=== PATIENT | female | born 1975 | race Caucasian/White ===

== ENCOUNTER 2019-05-21 07:02 | Outpatient (CLI) | payer OTHER, SELFPAY ==
[2019-05-21 07:55] LABS: Hemoglobin A1C 5.2 % (4.5-6.2)
[2019-05-21 08:09] LABS: Anion Gap 9.1 mmol/L (3-11); BUN 12 mg/dL (7-18); CO2 25.9 mmol/L (21.0-32.0); Calcium 8.6 mg/dL (8.5-10.1); Calculated LDL 130 mg/dL; Chloride 106 mmol/L (98-107); Cholesterol 211 mg/dL (50-200); Glucose 103 mg/dL (70-100); HDL Cholesterol 73 mg/dL (40-60); Potassium 4.6 mmol/L (3.5-5.1); Sodium 141 mmol/L (136-145); Triglyceride 44 mg/dL (30-150)
== END 2019-05-21 07:22 ==
PROVIDERS: PCP Family Medicine; Visit Provider Nurse Practitioner Family
DX: E78.5 Hyperlipidemia, unspecified (principal)
CPT/HCPCS: 36415; 80048; 80061; 83721; 83036

== ENCOUNTER 2019-05-27 00:41 | Outpatient (CLI) | payer OTHER, SELFPAY ==
--- NOTE | 2019-05-27 13:00 | DI.MAMMO_ITS ---
SYMPTOM/DIAGNOSIS: SCREENING, Z12.31 MAMMOGRAMS: Mammograms were interpreted according to the usual protocol including computer analysis with CAD system, tomosynthesis and C view imaging. Comparison is with the prior examinations. No suspicious masses or microcalcifications are seen. There is no definite evidence of malignancy. IMPRESSION: Negative mammogram. Routine screening is recommended. Category 1, breast density C. MQSA ASSESSMENT OF FINDINGS: Negative. Category 1. Patient will receive a letter notifying them of these results. Bi-RADS category C. The breasts are heterogeneously dense, which may obscure small masses.
== END 2019-05-27 01:01 ==
PROVIDERS: PCP Family Medicine; Visit Provider Nurse Practitioner Family
DX: Z12.31 Encounter for screening mammogram for malignant neoplasm of breast (principal)
CPT/HCPCS: 77063; 77067

== ENCOUNTER 2020-12-07 14:52 | Outpatient (REF) | payer OTHER, SELFPAY ==
--- NOTE | 2020-12-07 14:00 | PAPFT_PTH ---
PATIENT: Kindra Chatterjee LOC: [facility] U#:[id number] AGE/SX: 45/F ROOM: RE12/07/[address]: ЕКАТЕРИНА Luther : 1975 BED: DIS: 12/07/2020 SPEC #: [id number] RECD: 12/07/20 18:21 STATUS: TORREYAlex HUDSON #: [id number] TARA: 12/07/20 14:[address]: Yashira Eisenberg DEPT: [facility] Cytology RECD BY: Kisha Casper ENTERED: 12/07/20 18:21 SP TYPE: PAPFT FINN DR: ЕКАТЕРИНА Dykes Tissues: 1 - CX/ENDOCX FOR PAP SMEARS Procedures: PAP THIN PREP/UVM Screening HPV DNA PROBE Comments: [id number]
== END 2020-12-07 15:12 ==
LOC: LBN 14:52
PROVIDERS: PCP Nurse Practitioner Family; Visit Provider Nurse Practitioner Family
DX: Z12.4 Encounter for screening for malignant neoplasm of cervix (principal); Z11.51 Encounter for screening for human papillomavirus (HPV)
CPT/HCPCS: 88142; 87624

== ENCOUNTER 2021-07-19 01:52 | Outpatient (CLI) | payer OTHER, SELFPAY ==
--- NOTE | 2021-07-19 08:00 | DI.MAMMO_ITS ---
Exam(s) MAMMO SCREENING EXAM: MAMMO SCREENING CLINICAL HISTORY: screening,Z12.39 TECHNIQUE: Mammograms were interpreted according to the usual protocol including computer analysis w [employer] CAD system, tomosynthesis and C-view imaging. COMPARISON: 2013 through 2018 FINDINGS: The breasts are composed of heterogeneously dense fibroglandular densities, Breast Density category C . No suspicious masses or suspicious microcalcifications are seen. No skin thickening or abnormal axillary lymph nodes are seen. There has been no significant change from prior exams. IMPRESSION: BI-RADS Category 1, Negative mammogram. Yearly screening mammography is recommended. Breast Density Category C, heterogeneously Dense. The mammogram demonstrates the patient's breast tissue is dense. Dense breast tissue is very common a nd is not abnormal but dense breast tissue can make it harder to find cancer on a mammogram. Also, de nse breast tissue may increase breast cancer risk. This information about the result of the mammogram report was provided to the patient to raise their awareness. Use this report when you speak with the patient about their risks for breast cancer, which includes their family history. At that time, you may recommend additional screening tests (Ultrasound or MRI) as they might be useful based on their r isk. A negative radiographic report should not delay biopsy if a dominant or clinically suspicious mass is present. Up to ten percent of cancers are not identified on mammography. A negative report may reinforce clinical impression. Adenosis and dense breasts may obscure an underlying neoplasm. False positive reports average 6 to 10%.
== END 2021-07-19 02:12 ==
PROVIDERS: PCP Nurse Practitioner Family; Visit Provider Nurse Practitioner Family
DX: Z12.31 Encounter for screening mammogram for malignant neoplasm of breast (principal)
CPT/HCPCS: 77063; 77067

== ENCOUNTER 2022-04-26 10:52 | Outpatient (REF) | payer OTHER, SELFPAY ==
[2022-04-27 13:44] LABS: COVID-19 RT-PCR UVMMC Result Positive (Negative)
== END 2022-04-26 10:53 | disposition home or self-care (01) ==
LOC: LBN 10:52
PROVIDERS: PCP Nurse Practitioner Family; Visit Provider Family Medicine
DX: U07.1 COVID-19 (principal)
CPT/HCPCS: U0003

== ENCOUNTER → 2022-07-24 03:38 | Outpatient (CLI) | payer OTHER, SELFPAY ==
--- NOTE | 2022-07-24 14:01 | DI.MAMMO_ITS ---
Exam(s) MAMMO SCREENING EXAM: MAMMO SCREENING CLINICAL HISTORY: screening, Z12.39 TECHNIQUE: Bilateral full field digital CC and MLO mammographic images were obtained with 3D tomosyn thesis and utilizing computer aided detection (CAD). COMPARISON: Available for comparison. FINDINGS: Masses/Architectural Distortion: None seen. Microcalcifications: No suspicious pleomorphic-type are seen. Skin Thickening/Nipple Retraction: None. IMPRESSION: 1. No significant interval change with no specific features of malignancy noted. 2. Unless there is more urgent need, screening mammography is recommended, as per [place] guidelines. BI-RADS Category 1 - Negative Breast Density - Category C - Heterogeneously dense Breast density category C or D implies that the patient has dense breast tissue. Dense breast tissue is very common and is not abnormal but dense breast tissue can make it harder to find cancer on a ma mmogram. Also, dense breast tissue may increase their breast cancer risk. This information about the result of the mammogram report was provided to the patient to raise their awareness. Use this report when you speak with the patient about their risks for breast cancer, which includes their family hist ory. At that time, you may recommend for more screening tests (Ultrasound or MRI) as they might be us eful based on their risk. A negative radiographic report should not delay biopsy if a dominant or clinically suspicious mass is present. Up to ten percent of cancers are not identified on mammography. A negative report may reinforce clinical impression. Adenosis and dense breasts may obscure an underlying neoplasm. False positive reports average 6 to 10%. Patient will receive a letter notifying them of these results.
== END ==
PROVIDERS: PCP Nurse Practitioner Family; Visit Provider Nurse Practitioner
DX: Z12.31 Encounter for screening mammogram for malignant neoplasm of breast (principal)
CPT/HCPCS: 77063; 77067

== ENCOUNTER 2022-11-29 00:55 | Outpatient (CLI) | payer OTHER, SELFPAY ==
--- NOTE | 2022-11-29 08:15 | DI.RAD_ITS ---
Exam(s) XR HIP RT COMPLETE AP PELVIS EXAM: XR HIP RT COMPLETE AP PELVIS CLINICAL HISTORY: increasE in right hip pain,M25.551. TECHNIQUE: 2D digital imaging was performed of the right hip. Two images were obtained. AP pelvis a nd lateral right hip views were obtained. COMPARISON: No exams were available for comparison FINDINGS: BONES: No acute fracture is present. No bony destructive lesion is seen. JOINTS: No dislocation present. SOFT TISSUE: Normal. IMPRESSION: Unremarkable radiographs of the right hip. Unremarkable radiographs of the pelvis. DATA REPOSITORY: RADIATION DOSE DELIVERED:
== END 2022-11-29 01:15 ==
PROVIDERS: PCP Nurse Practitioner Family; Visit Provider Nurse Practitioner Family
DX: M25.551 Pain in right hip (principal)
CPT/HCPCS: 73502

== ENCOUNTER → 2023-09-15 02:45 | Outpatient (CLI) | payer OTHER, SELFPAY ==
--- NOTE | 2023-09-15 10:00 | DI.MAMMO_ITS ---
Exam(s) MAMMO SCREENING EXAM: MAMMO SCREENING CLINICAL HISTORY: screening, Z12.39 TECHNIQUE: Mammograms were interpreted according to the usual protocol including computer analysis w [employer] CAD system, tomosynthesis and C-view imaging. COMPARISON: 2013 through 2021 FINDINGS: The breasts are composed of heterogeneously dense fibroglandular densities, Breast Density category C . No suspicious masses or suspicious microcalcifications are seen. No skin thickening or abnormal axillary lymph nodes are seen. There has been no significant change from prior exams. IMPRESSION: BI-RADS Category 1, Negative mammogram. Yearly screening mammography is recommended. Breast Density Category C, heterogeneously Dense. The mammogram demonstrates the patient's breast tissue is dense. Dense breast tissue is very common a nd is not abnormal but dense breast tissue can make it harder to find cancer on a mammogram. Also, de nse breast tissue may increase breast cancer risk. This information about the result of the mammogram report was provided to the patient to raise their awareness. Use this report when you speak with the patient about their risks for breast cancer, which includes their family history. At that time, you may recommend additional screening tests (Ultrasound or MRI) as they might be useful based on their r isk. A negative radiographic report should not delay biopsy if a dominant or clinically suspicious mass is present. Up to ten percent of cancers are not identified on mammography. A negative report may reinforce clinical impression. Adenosis and dense breasts may obscure an underlying neoplasm. False positive reports average 6 to 10%.
== END ==
PROVIDERS: PCP Nurse Practitioner Family; Visit Provider Nurse Practitioner Family
DX: Z12.31 Encounter for screening mammogram for malignant neoplasm of breast (principal)
CPT/HCPCS: 77063; 77067

== ENCOUNTER 2023-09-29 04:00 | Outpatient (CLI) | payer OTHER, SELFPAY ==
[2023-09-29 08:14] LABS: Anion Gap 6.6 mmol/L (3-11); BUN 10 mg/dL (7-18); CO2 28.4 mmol/L (21.0-32.0); CREATININE 0.8 mg/dL (0.55-1.02); Calcium 9.2 mg/dL (8.5-10.1); Calculated LDL 133 mg/dL (<100); Chloride 105 mmol/L (98-107); Cholesterol 231 mg/dL (<200); Estimated GFR 89.71 (mL/min/1.73m2); Glucose 109 mg/dL (74-106); HDL Cholesterol 85 mg/dL (40-60); Potassium 3.9 mmol/L (3.5-5.1); Sodium 140 mmol/L (136-145); TSH (W/Ref FT4) 1.83 uIU/mL (0.36-3.74); Triglyceride 68 mg/dL (<150)
[2023-09-29 08:25] LABS: Hemoglobin A1C 4.9 % (<5.7)
== END 2023-09-29 04:01 | disposition home or self-care (01) ==
PROVIDERS: PCP Nurse Practitioner Family; Visit Provider Nurse Practitioner Family
DX: Z00.00 Encounter for general adult medical examination without abnormal findings (principal)
CPT/HCPCS: 36415; 80048; 80061; 83036; 84443

== ENCOUNTER 2024-09-28 04:31 | Outpatient (CLI) | payer OTHER, SELFPAY ==
[2024-09-28 15:12] LABS: ALT 33 U/L (14-59); AST 18 U/L (15-37); Albumin 4.6 g/dL (3.4-5.0); Alkaline Phosphatase 66 U/L (46-116); Anion Gap 9.7 mmol/L (3-11); BUN 15 mg/dL (7-18); Bilirubin, Total 0.95 mg/dL (0.2-1.0); CO2 28.3 mmol/L (21.0-32.0); CREATININE 0.9 mg/dL (0.55-1.02); Calcium 9.8 mg/dL (8.5-10.1); Calculated LDL 188 mg/dL (<100); Chloride 104 mmol/L (98-107); Cholesterol 300 mg/dL (<200); Glucose 98 mg/dL (74-106); HDL Cholesterol 99 mg/dL (40-60); Potassium 4.1 mmol/L (3.5-5.1); Sodium 142 mmol/L (136-145); Total Protein 8.3 g/dL (6.4-8.2); Triglyceride 67 mg/dL (<150)
== END 2024-09-28 04:32 | disposition home or self-care (01) ==
PROVIDERS: PCP Nurse Practitioner Family; Visit Provider Nurse Practitioner Family
DX: Z00.00 Encounter for general adult medical examination without abnormal findings (principal); E78.5 Hyperlipidemia, unspecified; F41.1 Generalized anxiety disorder
CPT/HCPCS: 36415; 80053; 80061

== ENCOUNTER 2024-10-11 01:27 | Outpatient (CLI) | payer OTHER, SELFPAY ==
--- NOTE | 2024-10-11 16:00 | DI.MAMMO_ITS ---
Exam(s) MAMMO SCREENING EXAM: MAMMO SCREENING CLINICAL HISTORY: screening,z12.39 TECHNIQUE: Bilateral full field digital CC and MLO mammographic images were obtained with 3D tomosyn thesis and utilizing computer aided detection (CAD). COMPARISON: Available for comparison. FINDINGS: Masses/Architectural Distortion: None seen. Microcalcifications: No suspicious pleomorphic-type are seen. Skin Thickening/Nipple Retraction: None. IMPRESSION: 1. No significant interval change with no specific features of malignancy noted. 2. Unless there is more urgent need, screening mammography is recommended, as per [place] [employer] guidelines. BI-RADS Category 1 - Negative Breast Density - Category C - Heterogeneously dense Breast density category C or D implies that the patient has dense breast tissue. Dense breast tissue is very common and is not abnormal but dense breast tissue can make it harder to find cancer on a ma mmogram. Also, dense breast tissue may increase their breast cancer risk. This information about the result of the mammogram report was provided to the patient to raise their awareness. Use this report when you speak with the patient about their risks for breast cancer, which includes their family hist ory. At that time, you may recommend for more screening tests (Ultrasound or MRI) as they might be us eful based on their risk. A negative radiographic report should not delay biopsy if a dominant or clinically suspicious mass is present. Up to ten percent of cancers are not identified on mammography. A negative report may reinforce clinical impression. Adenosis and dense breasts may obscure an underlying neoplasm. False positive reports average 6 to 10%. Patient will receive a letter notifying them of these results.
== END 2024-10-11 01:47 ==
LOC: DI 01:27
PROVIDERS: PCP Nurse Practitioner Family; Visit Provider Nurse Practitioner Family
DX: Z12.31 Encounter for screening mammogram for malignant neoplasm of breast (principal); R92.333 Mammographic heterogeneous density, bilateral breasts
CPT/HCPCS: 77063; 77067

== ENCOUNTER → 2025-09-20 00:48 | Outpatient (CLI) | payer OTHER, SELFPAY ==
--- NOTE | 2025-09-20 07:30 | DI.US_ITS ---
APPROVED REPORT EXAM: Comprehensive 2D, Doppler, and color-flow Echocardiogram Patient Location: Out-Patient [employer] Manager: Jesika Roth RDCS (AE) Indications: Systolic murmur Other Information Study Quality: Good Conclusion Normal left ventricular wall thickness and chamber size. Ejection fraction is 61%. Wall motion is normal Normal right ventricular size and function Both atria are normal in size There is no structural or hemodynamically significant valvular disease Wall motion Left Ventricle The left ventricle is normal size. The left ventricular systolic function is normal. The left ventricular ejection fraction is within the normal range. There is normal left ventricular wall thickness. There is normal LV segmental wall motion. There is no ventricular septal defect visualized. LVEF is 61%. Right Ventricle The right ventricle is normal size. The right ventricular systolic function is normal. Atria The left atrium size is normal. The right atrium size is normal. The interatrial septum is intact with no evidence for an atrial septal defect. Aortic Valve The aortic valve is normal in structure. Aortic valve is trileaflet. There is no aortic valvular stenosis. No aortic regurgitation is present. Mitral Valve The mitral valve is normal in structure. No evidence of mitral valve stenosis. Trace mitral regurgitation. Tricuspid Valve The tricuspid valve is normal in structure. There is no tricuspid valve stenosis. Trace tricuspid regurgitation. Unable to assess PA pressure. Pulmonic Valve The pulmonary valve is normal in structure. There is no pulmonic valvular stenosis. There is no pulmonic valvular regurgitation. Great Vessels The aortic root is normal in size. The ascending aorta is normal in size. Aortic arch is normal in caliber. IVC is normal in size and collapses >50% with inspiration. Pericardium There is no pericardial effusion. 2D Dimensions IVSD d PLAX 0.80 cm F: 0.6-1.0 Ao Root d 2.22 cm F: 2.7 - 3.3 LVPW d PLAX 0.80 cm F: 0.6 - 1.0 Ao Asc Diam d 2.86 cm F: 2.3 - 3.1 LVID d PLAX 4.15 cm F: 3.8 - 5.2 LVDs 2.82 cm F: 2.2 - 3.5 LV EF Teichholz 60.5 % FS 31.97 % LV EDV (Teich) 76.2 mL LV ESV (Teich) 30.1 mL M-Mode TAPSE 1.92 cm (M/F) >1.7 Auto EF LV EDV A4C 84.1 mL LV EDV A2C 84.7 mL LV EDV BP 86.2 mL LV ESV A4C 32.5 mL LV ESV A2C 33.7 mL LV ESV BP 32.7 mL LVEF(%) A4C 61.3 % LVEF(%) A2C 60.2 % LVEF(%) BP 62.1 % LV SV A4C 51.6 ml LV SV A2C 51.0 ml LV SV BP 53.5 ml LV CO A4C 3.6 L/min LV CO A2C 3.3 L/min LV CO BP 3.4 L/min HR A4C 68.94 BPM HR A2C 65.22 BPM LV EDV Index (BP) LA Volume LA Length A4C 4.6 cm LA Length A2C 3.7 cm LA Area A4C s 14.41 cm2 LA Area A2C s 10.38 cm2 LA Vol A4C A-L 37.97 mL LA Vol A2C A-L 24.44 mL LA Vol Biplane A-L 34.0 mL LA Vol/BSA A4C A-L LA Vol/BSA A2C A-L LA Vol/BSA BP A-L 22.3 mL/m2 LA Vol A4C MOD 36.0 mL LA Vol A2C MOD 22.8 mL LA Vol BP MOD 31.8 mL RA Volume RA Area A4C 9.2 cm2 RA ESV A4C (A-L) 18.4mL RA Vol/BSA A4C A-L RA Length A4C 3.9 cm RA ESV A4C (MOD) 17.1mL LV Diastology MV E' medial 0.065 (>0.07 m/s) MV E Vmax 0.74 (0.4-1.3 m/s) MV E/E' MED 11.40 (<14) MV A Vmax 0.80 (0.4-1.3 m/s) MV E' lateral 0.074 (>0.1 m/s) E/A Ratio 0.9 MV E/E' LAT 10.08 (<14) MV E' Average 0.070 m/s MV E/E'(average) 10.70 Aortic Valve AoV Vmax 1.47 m/s LVOT Vmax 1.08 m/s AoV Peak Grad 8.7 mmHg LVOT Peak Grad 4.6 mmHg AoV Area (Vmax) 2.00 cm2 LVOT VTI 0.224 m AoV VTI 0.322 m LVOT Mean Grad 2.6 mmHg AoV Mean Tony. 1.03 m/s LVOT SV 61.15 mL AoV Mean Grad 4.8 mmHg LVOT Diam s 1.85 cm AoV Area (VTI) 1.90 cm2 AV Regurg Peak Gr. 8.67 mmHg Velocity Ratio 0.73 Mitral Valve MV DT 187 (160-240 msec) MV Vmax TIPS 0.90 m/s MV Mean Grad 1.3 (<2mmHg) MV VTI 0.260 m Pulmonary Valve PV Vmax 0.82 (0.5-1.5 m/s) RVOT Vmax 0.85 m/s PV Peak Grad 2.7 mmHg RVOT Peak Gr. 2.9 mmHg PV Mean Tony 0.59 m/s RVOT VTI 0.179 m PV Mean Grad 1.6 mmHg RVOT Mean Gr. 1.6 mmHg Tricuspid Valve RA Pressure 3.00 mmHg
== END ==
LOC: DI 00:48
PROVIDERS: PCP Nurse Practitioner Family; Visit Provider Nurse Practitioner Family
DX: R01.1 Cardiac murmur, unspecified (principal)
CPT/HCPCS: 93306

== ENCOUNTER → 2025-10-12 00:41 | Outpatient (CLI) | payer OTHER, SELFPAY ==
--- NOTE | 2025-10-12 14:10 | DI.MAMMO_ITS ---
Exam(s) MAMMO SCREENING EXAM: MAMMO SCREENING CLINICAL HISTORY: screening,Z12.39 TECHNIQUE: Bilateral full field digital CC and MLO mammographic images were obtained with 3D tomosynthesis and utilizing computer aided detection (CAD). COMPARISON: Comparison is made with prior examinations. FINDINGS: Masses/Architectural Distortion: No suspicious masses or areas of architectural distortion are present. Microcalcifications: No suspicious pleomorphic-type are seen. Skin Thickening/Nipple Retraction: None. IMPRESSION: 1. No significant interval change with no specific features of malignancy noted. 2. Unless there is more urgent need, screening mammography is recommended, as per [employer] guidelines. BI-RADS Category 1 - Negative Breast Density - Category C - The breast are heterogeneously dense, which may obscure small masses. Breast density Category C or D implies that the patient has dense breast tissue. Dense breast tissue can make it harder to find cancer on a mammogram. Dense breast tissue is also associated with an increased risk of breast cancer. This information about the result of the mammogram report was provided to the patient to raise their awareness. Use this report when you speak with the patient about their risks for breast cancer, which includes their family history. At that time, you may recommend additional screening tests (Ultrasound or MRI) as these tests may add significant information. A negative radiographic report should not delay biopsy if a dominant or clinically suspicious mass is present. Up to ten percent of cancers are not identified on mammography. A negative report may reinforce clinical impression. Adenosis and dense breasts may obscure an underlying neoplasm. False positive reports average 6 to 10%. Patient will receive a letter notifying them of these results.
== END ==
PROVIDERS: PCP Nurse Practitioner Family; Visit Provider Nurse Practitioner Family
DX: Z12.31 Encounter for screening mammogram for malignant neoplasm of breast (principal)
CPT/HCPCS: 77063; 77067

== ENCOUNTER 2025-10-17 14:25 | Outpatient (CLI) | payer OTHER, SELFPAY ==
[2025-10-17 15:04] LABS: Abs Immature Grans 0.02 10^3/uL (0.0-0.06); HCT 40.8 % (36.0-46.0); HGB 14.4 g/dL (11.2-15.7); Immature Grans % 0.2 %; MCH 31.2 pg (27.0-33.0); MCHC 35.3 % (32.0-36.0); MCV 88 fL (80-95); MPV 9.3 fL (8.0-11.0); Platelet Count 341 10^3/uL (130-400); RBC 4.62 10^6/uL (3.93-5.22); RDW 11.3 % (11.7-14.6); RDW-SD 36.2 fL; WBC 8.67 10^3/uL (4.4-10.8)
[2025-10-17 16:34] LABS: Anion Gap 9.1 mmol/L (3-11); BUN 14 mg/dL (9-23); CO2 28.9 mmol/L (20.0-31.0); Calcium 9.7 mg/dL (8.3-10.6); Chloride 104 mmol/L (98-107); Cholesterol 257 mg/dL (<200); Glucose 81 mg/dL (74-106); HDL Cholesterol 84 mg/dL (>40); Potassium 3.8 mmol/L (3.5-5.1); Sodium 142 mmol/L (136-145)
[2025-10-18 09:30] LABS: HBs Antibody, Quant <3.1 mIU/mL (See Note); Hepatitis B Surface Antigen Negative (Negative)
[2025-10-18 09:53] LABS: Hepatitis C Ab w Rflx HCV PCR Negative (Negative)
[2025-10-18 10:22] LABS: HIV-1/2 Ag & Ab Screen Negative (Negative)
== END 2025-10-17 14:26 | disposition home or self-care (01) ==
LOC: LBO 14:26
PROVIDERS: PCP Nurse Practitioner Family; Visit Provider Nurse Practitioner Family
DX: I10 Essential (primary) hypertension (principal); E78.5 Hyperlipidemia, unspecified; Z11.4 Encounter for screening for human immunodeficiency virus [HIV]; Z11.59 Encounter for screening for other viral diseases
CPT/HCPCS: 36415; 80048; 80061; 86704; 86706; 86803; 87340; 87389; 85025